=== PATIENT | male | born 1990 | race Caucasian/White ===

== ENCOUNTER 2018-03-06 22:58 | Emergency (ER) | payer MEDICAID ==
[2014-12-01 06:39] VITALS: BMI 26.3
[~2018-03-06 22:58] MED LIST: BACTRIM 400-801 TAB PO; CELEXA10 MG PO; HYDROCODONE-APA1 TAB PO; LISINOPRIL10 MG PO
== END 2018-03-07 00:08 | disposition home or self-care (01) ==
LOC: D.ER 22:58
DX: S61.411A Laceration without foreign body of right hand, initial encounter (principal); W25.XXXA Contact with sharp glass, initial encounter; Y93.89 Activity, other specified; Y92.89 Other specified places as the place of occurrence of the external cause

== ENCOUNTER 2018-08-10 04:59 | Emergency (ER) | payer SELFPAY ==
[~2018-08-10] VITALS: Ht 190.5 cm; Wt 90.9 kg
[2018-08-10 05:00] VITALS: Ht 190.5 cm; Wt 90.9 kg
[2018-08-10] MEDS ORDERED: COREG12.5 MG (05:02)
[2018-08-10] MEDS ORDERED: COREG 3.1253.125 MG (05:03)
[2018-08-10] MEDS ORDERED: AMOXICILLIN500 M1 PO (05:17)
[2018-08-10] MEDS ORDERED: NAPROSYN500 MG PO (05:17)
[2018-08-10 05:34] VITALS: BP 132/85
== END 2018-08-10 05:36 | disposition home or self-care (01) ==
LOC: D.ER 04:59
DX: K02.9 Dental caries, unspecified (principal); K05.00 Acute gingivitis, plaque induced; I10 Essential (primary) hypertension; F17.200 Nicotine dependence, unspecified, uncomplicated